=== PATIENT | female | born 1985 | race African-American/Black ===

== ENCOUNTER 2019-10-04 20:51 | Emergency (ER) | payer OTHER ==
[~2019-10-04] VITALS: Ht 162.6 cm; Wt 86.6 kg
[~2019-10-04 20:51] MED LIST: APAP500 PO; BENZOCAINE59.7 GM TP; FLAGYL500 MG PO; HYDROCORTISONE30 G9 TP; IBUPROFEN 800800 M1 PO; LANOLIN ANHYDRO30 GM TP; MACROBID 100 M100 M1 PO; PERCOCET 5-3251 EACH; TUCKS1 EAC1 TP
[2019-10-04] MEDS ORDERED: HYDROCODON-ACE1 EAC7 PO (21:14)
[2019-10-04] MEDS ORDERED: NAPROSYN500 MG PO (21:14)
[2019-10-04 21:34] VITALS: BP 115/70
== END 2019-10-04 21:35 | disposition home or self-care (01) ==
LOC: M.ERS 20:51
DX: S62.644A Nondisplaced fracture of proximal phalanx of right ring finger, initial encounter for closed fracture (principal); W22.8XXA Striking against or struck by other objects, initial encounter; J45.909 Unspecified asthma, uncomplicated; Y93.89 Activity, other specified; Y92.89 Other specified places as the place of occurrence of the external cause; Y99.8 Other external cause status